=== PATIENT | female | born 1995 | race Caucasian/White ===

== ENCOUNTER 2016-10-05 20:10 | Emergency (ER) | payer OTHER ==
[~2016-10-05 20:10] MED LIST: METH40TA PO; PRENTAB16 PO; TYLE500T78 PO; ZOFR20TA PO
[2016-10-05] MEDS ORDERED: METOCLOPRAMIDE INJ 10MG/2ML VIAL (J2765) As Ordered ONE (22:16)
[2016-10-05 22:41] LABS: BASO # 0.1 K/mm3 (0.0-0.2); BASO % 0.7 % (0.0-1.0); EOS % 0.1 % (0.0-3.0); LARGE UNSTAINED CELL # 0.1 K/mm3 (0.0-0.4); LARGE UNSTAINED CELL % 0.6 % (0.0-4.0); LYMPH # 1.5 K/mm3 (1.5-6.5); LYMPH % 8.5 % (24.0-44.0); MEAN CORPUSCULAR HEMOGLOBIN 28.5 pg (27.0-33.0); MEAN CORPUSCULAR HGB CONC 33.2 g/dl (32.0-36.5); MEAN CORPUSCULAR VOLUME 85.8 fl (80.0-96.0); MONO # 0.4 K/mm3 (0.0-0.8); MONO % 2.6 % (0.0-5.0); NEUTROPHILS # 14.3 K/mm3 (1.8-7.7); NEUTROPHILS % 87.6 % (36.0-66.0); PLATELET COUNT, AUTOMATED 224 k/mm3 (150-450); RED CELL DISTRIBUTION WIDTH 12.9 % (11.5-14.5); WHITE BLOOD COUNT 16.4 K/mm3 (4.0-10.0)
[2016-10-05 23:00] LABS: ALBUMIN 3.9 GM/DL (3.2-5.2); ALBUMIN/GLOBULIN RATIO 1.03 (1.00-1.93); ALKALINE PHOSPHATASE 46 U/L (45-117); ALT/SGPT 15 U/L (12-78); ANION GAP 14 MEQ/L (8-16); AST/SGOT 10 U/L (15-37); BILIRUBIN,DIRECT 0.1 MG/DL (0.0-0.2); BILIRUBIN,TOTAL 0.4 MG/DL (0.2-1.0); BLOOD UREA NITROGEN 12 MG/DL (7-18); CALCIUM LEVEL 9.4 MG/DL (8.5-10.1); CARBON DIOXIDE LEVEL 24 MEQ/L (21-32); CHLORIDE LEVEL 102 MEQ/L (98-107); CREATININE FOR GFR 0.52 MG/DL (0.55-1.02); GLOMERULAR FILTRATION RATE > 60.0 (>60); GLUCOSE, FASTING 99 MG/DL (70-105); POTASSIUM SERUM 3.5 MEQ/L (3.5-5.1); SODIUM LEVEL 140 MEQ/L (136-145); TOTAL PROTEIN 7.7 GM/DL (6.4-8.2)
[2016-10-06] MEDS ORDERED: NITROFURANTOIN (MACROBID) 100 MG CAP As Ordered ONE (01:53)
--- NOTE | 2016-10-06 02:10 | EDDOCDS ---
Nurse's Notes [facility] Name: Melani Kidd Age: 21 yrs Sex: Female : 1995 Arrival Date: 10/05/2016 Time: 20:10 Bed I1 / M1 Private MD: NO PRIMARY PHYSICIAN, . Diagnosis: Vomiting of , unspecified;Urinary tract infection, site not specified Presentation: 10/05 20:24 Presenting complaint: Patient states: vomiting for 3 days abdominal discomfort no cz diarrhea pt is 11 weeks out of reglan and zofran. Adult Sepsis Screening: The patient does not have new or worsening altered mentation. Patient's respiratory rate is less than 22. Systolic blood pressure is greater than 100. Patient has a qSOFA score of 0- Negative Sepsis Screen. Suicide/Homicide risk assessment- the patient denies having any suicidal and/or homicidal ideations and does not present with any other emotional, behavioral or mental health complaints. Status: Patient is not a director of rehabilitative services or dependent. Transition of care: patient was not received from another setting of care. 20:24 Acuity: CAROLYNN Level 3 cz 20:24 Method Of Arrival: Walkin/Carried/Asstd cz 20:27 Presenting complaint:. cz Triage Assessment: 20:26 General: Appears uncomfortable. Pain: Location: abdomen Pain currently is 8 out of 10 cz on a pain scale. HIV screening NA for this visit Offered previously. 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 methadone 45 mg Oral TbSO 1 tab once daily for Opioid Dependence 2. 1 mg Oral tab 1 tab daily - PMHx: MRSA; Substance Abuse; - PSHx: Adenoidectomy; Tonsillectomy; Tubes in ears; - Social history: Smoking status: Patient states was never smoker of tobacco. No barriers to communication noted, The patient speaks fluent Swedish, Speaks appropriately for age. - Family history: Not pertinent. - : The pt / caregiver states he / she is on anticoagulants: Home medication list is obtained from the patient. 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 Screenin:35 Screening information is obtained from the patient. Fall risk: No risks identified. kc3 Assistance ADL's: requires no assistance with activities of daily living. Abuse/DV Screen: The patient / caregiver reports he/she is: not in a situation that causes fear, pain or injury. Nutritional screening: No deficits noted. home support is adequate. 10/06 02:08 Advance Directives: Further advance directive information is declined. sls1 Assessment: 10/05 20:43 General: Appears uncomfortable, Behavior is appropriate for age, cooperative. mb9 Cardiovascular: Chest pain is described as Pain is 5 out of 10 on a pain scale. quality is aching is located in anterior chest wall radiates Does not radiate. is aggravated by breathing, palpation. Respiratory: Airway is patent Respiratory effort is even, unlabored. 21:42 General: Appears uncomfortable, pt called into triage room ahead due to actively sls1 vomiting in waiting room. 22:34 General: Appears uncomfortable, Behavior is appropriate for age, cooperative. Pain: kc3 Location: right lower quadrant Pain currently is 7 out of 10 on a pain scale. Neurological: Level of Consciousness is awake, alert, obeys commands, Oriented to person, place, time. Respiratory: Respiratory effort is even, unlabored. GI: Abdomen is flat, Reports nausea. : Reports inability to void. Derm: Skin is pink, warm & dry. 22:46 GI: Bowel sounds present X 4 quads. Abd is soft Abd is tender to palpation. kc3 23:26 General: pt drank 60 ml of apple juice. pt denies vomiting . dsf 10/06 00:31 General: Appears in no apparent distress, Behavior is appropriate for age. dsf Neurological: Level of Consciousness is awake, alert. Cardiovascular: No deficits noted. Respiratory: No deficits noted. Derm: Skin is pink, warm & dry. 01:26 General: Appears uncomfortable, Pt reports continues to have nausea, but mostly with sls1 movement. Provider aware, no new orders given. Pt is unable to have additional medications at this time due to max dose.. Neurological: Level of Consciousness is awake, alert. Respiratory: No deficits noted. GI: Reports nausea. Derm: 02:08 General: provider aware of blood pressure, pt denies c/o dizziness or light headedness, sls1 discharge instructions reviewed with pt including medication use and follow up care, verbalizes understanding of all instructions. Pain: Denies pain. Neurological: Level of Consciousness is awake, alert, Denies dizziness. Respiratory: No deficits noted. Vital Signs: 10/05 20:12 BP 145 / 70; Pulse 116; Resp 16; Temp 98.8(O); Pulse Ox 97% ; Weight 58.97 kg; Height 5 cmb ft. 2 in. (157.48 cm); Pain 8/10; 10/06 00:29 BP 105 / 55; Pulse 86; Resp 16; Temp 99.2; Pulse Ox 96% ; Pain 0/10; ajs 01:54 Pulse 92; Resp 18; Temp 98.8; Pulse Ox 97% ; ajs 02:00 BP 102 / 55 LA Supine (auto/reg); ajs 10/05 20:12 Body Mass Index 23.78 (58.97 kg, 157.48 cm) cmb Vitals: 10/05 20:12 Log In Time: October 05, 2016 at 20:10. cmb 22:48 Heart Tones 171BPM. [facility] ED Course: 20:11 Patient visited by Malka Flynn. cmb 20:11 Patient moved to Waiting cmb 20:12 NO PRIMARY PHYSICIAN, . is Private Physician. cmb 20:13 Patient moved to Pre RCE cmb 20:25 Triage Initiated cz 20:38 Patient moved to PR2 / 26 sls1 20:57 Patient moved to TR3 mdr 21:11 Patient moved to Pre RCE sls1 21:42 Patient moved to Triage 1 sls1 21:55 Teagan Leonard FNP is [facility]. le 22:01 Patient visited by Teagan Leonard FNP. le 22:01 Patient visited by Teagan Leonard FNP. le 22:04 Patient moved to I1 / M1 sls1 22:09 Patient visited by Teagan Leonard FNP. le 22:35 Inserted saline lock: 20 gauge in right antecubital area and blood collected. The 3 patient tolerated the procedure well. Labs drawn. (by ED staff). Sent per order to lab. 22:35 Lipase Sent. kc3 22:36 Patient visited by Charity Green RN. kc3 22:36 Liver Profile Sent. kc3 22:36 BMP Sent. kc3 22:36 CBC with Diff Sent. kc3 22:43 [place] [place] Payment Agreement was scanned into [employer] and attached to record. ks16 22:47 Patient visited by Charity Green RN. kc3 22:47 The patient / caregiver is instructed regarding the plan of care and ED course. kc3 23:44 Patient visited by Melani Suaer. ajs 10/06 00:24 UA Sent. dsf 00:29 Patient visited by Melani Sauer. ajs 00:32 Patient visited by Cande Díaz RN. dsf 01:02 PHCP role handed off by Teagan Leonard FNP ck7 01:02 Julio Ellison RPA-C is PHCP. ck7 01:02 Josué Conway DO is Attending Physician. ck7 01:04 Patient visited by Julio Ellison RPA-C. ck7 01:28 Patient visited by Prisca Tidwell RN. sls1 02:08 Discontinued lock intact, bleeding controlled, pressure dressing applied, No sls1 redness/swelling at site. No procedures done that require assistance. Administered Medications: 10/05 22:36 Drug: NS 0.9% 2000 ml [sodium chloride 0.9 % intravenous solution] Route: IV; Rate: kc3 bolus; Site: right antecubital; 10/06 00:23 Follow up: IV Status: Completed infusion; IV Intake: 2000ml [facility] 10/05 22:36 Drug: Metoclopramide 20 mg [metoclopramide 5 mg/mL injection solution] Route: IV; Rate: kc3 80 mg/hr; Infused Over: 15 mins; Site: right antecubital; 23:01 Follow up: IV Status: Completed infusion; IV Intake: 10ml f 10/06 01:56 Drug: Nitrofurantoin 100 mg [nitrofurantoin macrocrystal 50 mg capsule (2 caps)] Route: sls1 PO; Intake: 10/05 23:01 IV: 10.00ml; Total: 10.00ml. dsf 10/06 00:23 IV: 2000.00ml; Total: 2010.00ml. dsf Order Results: Lab Order: UA; SPEC'M 10/06/16 00:24 Test: APPEARANCE, URINE; Value: HAZY; Range: CLEAR; Status: F Test: COLOR, URINE; Value: JOCELYNN; Range: YELLOW; Status: F Test: PH,URINE; Value: 5.0; Range: 5.0-9.0; Units: UNITS; Status: F Test: SPECIFIC GRAVITY URINE AUTO; Value: 1.034; Range: 1.002-1.035; Status: F Test: PROTEIN, URINE AUTO; Value: 2+; Range: NEGATIVE; Abnormal: Above high normal; Units: mg/dL; Status: F Test: GLUCOSE, URINE (UA) AUTO; Value: NEGATIVE; Range: NEGATIVE; Units: mg/dL; Status: F Test: KETONE, URINE AUTO; Value: 2+; Range: NEGATIVE; Abnormal: Above high normal; Units: mg/dL; Status: F Test: UROBILINOGEN, URINE AUTO; Value: 0.2; Range: 0.0-2.0; Units: mg/dL; Status: F Test: BILIRUBIN, URINE AUTO; Value: NEGATIVE; Range: NEGATIVE; Status: F Test: NITRITE, URINE AUTO; Value: NEGATIVE; Range: NEGATIVE; Status: F Test: LEUKOCYTE ESTERASE, URINE AUTO; Value: 1+; Range: NEGATIVE; Abnormal: Above high normal; Status: F Test: BLOOD, URINE BLOOD; Value: NEGATIVE; Range: NEGATIVE; Status: F Test: WBC, URINE AUTO; Value: 7; Range: 0-3; Abnormal: Above high normal; Units: /HPF; Status: F Test: RBC, URINE AUTO; Value: 6; Range: 0-3; Abnormal: Above high normal; Units: /HPF; Status: F Test: BACTERIA, URINE AUTO; Value: 1+; Range: NEGATIVE; Abnormal: Above high normal; Status: F Test: SQUAMOUS EPITHELIAL CELL UR AU; Value: 1; Range: 0-6; Units: /HPF; Status: F Test: MUCUS, URINE; Value: LARGE; Range: NEGATIVE; Status: F Test: HYALINE CAST, URINE AUTO; Value: 0; Range: 0-1; Units: /LPF; Status: F Lab Order: CBC with Diff; SPEC'M 10/05/16 22:25 Test: WHITE BLOOD COUNT; Value: 16.4; Range: 4.0-10.0; Abnormal: Above high normal; Units: K/mm3; Status: F Test: RED BLOOD COUNT; Value: 4.88; Range: 4.00-5.40; Units: M/mm3; Status: F Test: HEMOGLOBIN; Value: 13.9; Range: 12.0-16.0; Units: g/dl; Status: F Test: HEMATOCRIT; Value: 41.9; Range: 36.0-47.0; Units: %; Status: F Test: MEAN CORPUSCULAR VOLUME; Value: 85.8; Range: 80.0-96.0; Units: fl; Status: F Test: MEAN CORPUSCULAR HEMOGLOBIN; Value: 28.5; Range: 27.0-33.0; Units: pg; Status: F Test: MEAN CORPUSCULAR HGB CONC; Value: 33.2; Range: 32.0-36.5; Units: g/dl; Status: F Test: RED CELL DISTRIBUTION WIDTH; Value: 12.9; Range: 11.5-14.5; Units: %; Status: F Test: PLATELET COUNT, AUTOMATED; Value: 224; Range: 150-450; Units: k/mm3; Status: F Test: NEUTROPHILS %; Value: 87.6; Range: 36.0-66.0; Abnormal: Above high normal; Units: %; Status: F Test: LYMPH %; Value: 8.5; Range: 24.0-44.0; Abnormal: Below low normal; Units: %; Status: F Test: MONO %; Value: 2.6; Range: 0.0-5.0; Units: %; Status: F Test: EOS %; Value: 0.1; Range: 0.0-3.0; Units: %; Status: F Test: BASO %; Value: 0.7; Range: 0.0-1.0; Units: %; Status: F Test: LARGE UNSTAINED CELL %; Value: 0.6; Range: 0.0-4.0; Units: %; Status: F Test: NEUTROPHILS #; Value: 14.3; Range: 1.8-7.7; Abnormal: Above high normal; Units: K/mm3; Status: F Test: LYMPH #; Value: 1.5; Range: 1.5-6.5; Units: K/mm3; Status: F Test: MONO #; Value: 0.4; Range: 0.0-0.8; Units: K/mm3; Status: F Test: EOS #; Value: 0.0; Range: 0.0-0.50; Units: K/mm3; Status: F Test: BASO #; Value: 0.1; Range: 0.0-0.2; Units: K/mm3; Status: F Test: LARGE UNSTAINED CELL #; Value: 0.1; Range: 0.0-0.4; Units: K/mm3; Status: F Lab Order: BMP; SPEC'M 10/05/16 22:25 Test: GLUCOSE, FASTING; Value: 99; Range: 70-105; Units: MG/DL; Status: F Test: BLOOD UREA NITROGEN; Value: 12; Range: 7-18; Units: MG/DL; Status: F Test: CREATININE FOR GFR; Value: 0.52; Range: 0.55-1.02; Abnormal: Below low normal; Units: MG/DL; Status: F Test: GLOMERULAR FILTRATION RATE; Value: > 60.0; Range: >60; Status: F Test: SODIUM LEVEL; Value: 140; Range: 136-145; Units: MEQ/L; Status: F Test: POTASSIUM SERUM; Value: 3.5; Range: 3.5-5.1; Units: MEQ/L; Status: F Test: CHLORIDE LEVEL; Value: 102; Range: 98-107; Units: MEQ/L; Status: F Test: CARBON DIOXIDE LEVEL; Value: 24; Range: 21-32; Units: MEQ/L; Status: F Test: ANION GAP; Value: 14; Range: 8-16; Units: MEQ/L; Status: F Test: CALCIUM LEVEL; Value: 9.4; Range: 8.5-10.1; Units: MG/DL; Status: F Test Note: ; Units are mL/min/1.73 m2 Chronic Kidney Disease Staging per NKF: Stage I & II GFR >=60 Normal to Mildly Decreased Stage III GFR 30-59 Moderately Decreased Stage IV GFR 15-29 Severely Decreased Stage V GFR <15 Very Little GFR Left ESRD GFR <15 on EDGE PLUGGER Lab Order: Liver Profile; SPEC'M 10/05/16 22:25 Test: AST/SGOT; Value: 10; Range: 15-37; Abnormal: Below low normal; Units: U/L; Status: F Test: ALT/SGPT; Value: 15; Range: 12-78; Units: U/L; Status: F Test: ALKALINE PHOSPHATASE; Value: 46; Range: 45-117; Units: U/L; Status: F Test: BILIRUBIN,TOTAL; Value: 0.4; Range: 0.2-1.0; Units: MG/DL; Status: F Test: BILIRUBIN,DIRECT; Value: 0.1; Range: 0.0-0.2; Units: MG/DL; Status: F Test: TOTAL PROTEIN; Value: 7.7; Range: 6.4-8.2; Units: GM/DL; Status: F Test: ALBUMIN; Value: 3.9; Range: 3.2-5.2; Units: GM/DL; Status: F Test: ALBUMIN/GLOBULIN RATIO; Value: 1.03; Range: 1.00-1.93; Status: F Lab Order: Lipase; SPEC'M 10/05/16 22:25 Test: LIPASE; Value: 87; Range: 73-393; Units: U/L; Status: F Outcome: 01:51 Discharge ordered by Provider. ck7 02:08 Discharge Assessment: Patient awake, alert and oriented x 3. No cognitive and/or sls1 functional deficits noted. Patient verbalized understanding of disposition instructions. patient administered narcotics - no. The following High Risk Discharge criteria are identified: None. Discharged to home ambulatory. Condition: stable. Discharge instructions given to patient, Instructed on discharge instructions, follow up and referral plans. medication usage, Demonstrated understanding of instructions, medications, Pt was receptive of discharge instructions/ teaching. Prescriptions given X 1. Ultrasound Study completed. Property :Personal belongings accompany Pt. 02:10 Patient left the ED. sls1 Signatures: Jacobo Garcia RN RN cz Teagan Leonard FNP FNP le Fuller, DesireeRN RN Melani Worthington Shannon RN RN sls1 Malka Flynn Christopher, RPA-C RPA-Cck7 Telly Garza,RN RN mb9 Deny Mosley, RESEARCH STATISTICIAN RESEARCH STATISTICIAN Charity Chung,ISAEL RN kc3 Roula Ochoa, Reg Reg ks16 Corrections: (The following items were deleted from the chart) 10/05 20:27 20:24 Presenting complaint: Patient states: vomiting for 3 days abdominal discomfort no cz diarrhea cz 20:27 20:24 Adult Sepsis Screening: The patient does not have new or worsening altered cz mentation. Patient's respiratory rate is less than 22. Systolic blood pressure is greater than 100. Patient has a qSOFA score of 0- Negative Sepsis Screen. cz MTDD
--- NOTE | 2016-10-06 02:10 | EDDOCDS ---
Physician Documentation [facility] Name: Melani Kidd Age: 21 yrs Sex: Female : 1995 Arrival Date: 10/05/2016 Time: 20:10 Bed I1 / M1 Private MD: NO PRIMARY PHYSICIAN, . Disposition: 10/06/16 01:51 Discharged to Home/Self Care. Impression: Vomiting of , unspecified, Urinary tract infection, site not specified. - Condition is Stable. - Discharge Instructions: Hyperemesis Gravidarum, Urinary Tract Infection. - Prescriptions for Reglan 10 mg Oral Tablet - take 1 tablet by ORAL route every 6 hours take 30 minutes before meals and at bedtime; 20 tablet. Macrobid 100 mg Oral Capsule - take 100 milligram by ORAL route every 12 hours for 10 days; 20 capsule. - Medication Reconciliation, Local Pharmacy Hours form. - Follow up: Private Physician; When: 1 - 2 days; Reason: Recheck today's complaints, Continuance of care. - Problem is new. - Symptoms have improved. Historical: - Allergies: Latex (Hives); - Home Meds: 1. methadone 45 mg Oral TbSO 1 tab once daily for Opioid Dependence 2. 1 mg Oral tab 1 tab daily - PMHx: MRSA; Substance Abuse; - PSHx: Adenoidectomy; Tonsillectomy; Tubes in ears; - Social history: Smoking status: Patient states was never smoker of tobacco. No barriers to communication noted, The patient speaks fluent Icelandic, Speaks appropriately for age. - Family history: Not pertinent. - : The pt / caregiver states he / she is on anticoagulants: Home medication list is obtained from the patient. 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 2 in. (157.48 cm); Pain 8/10; 10/06 00:29 BP 105 / 55; Pulse 86; Resp 16; Temp 99.2; Pulse Ox 96% ; Pain 0/10; ajs 01:54 Pulse 92; Resp 18; Temp 98.8; Pulse Ox 97% ; ajs 02:00 BP 102 / 55 LA Supine (auto/reg); ajs 10/05 20:12 Body Mass Index 23.78 (58.97 kg, 157.48 cm) cmb MDM: 10/05 20:42 ECG WITH READING ER PHYS+CARDIAG ordered. EDMS 20:42 ECG WITH READING ER PHYS+CARDIAG ordered. EDMS 22:07 IV Saline Lock ordered. le 22:07 NS 0.9% 2000 ml IV at bolus once ordered. le 22:07 Heart Tones ordered. le 22:07 Metoclopramide 20 mg IV at 80 mg/hr once over 15 mins ordered. le 22:08 UA Ordered. EDMS 22:08 CBC with Diff Ordered. EDMS 22:08 BMP Ordered. EDMS 22:08 Liver Profile Ordered. EDMS 22:08 Lipase Ordered. EDMS 22:43 Financial registration complete. ks 22:43 [facility] Payment Agreement was scanned into [employer] and attached to record. ks 22:48 CBC with Diff Reviewed. le 23:06 BMP Reviewed. le 23:06 Liver Profile Reviewed. le 23:06 Lipase Reviewed. le 23:07 Fluid Challenge ordered. le 10/06 01:46 UA Reviewed. ck7 01:51 Nitrofurantoin 100 mg PO once ordered. ck7 Administered Medications: 10/05 22:36 Drug: NS 0.9% 2000 ml [sodium chloride 0.9 % intravenous solution] Route: IV; Rate: kc3 bolus; Site: right antecubital; 10/06 00:23 Follow up: IV Status: Completed infusion; IV Intake: 2000ml [facility] 10/05 22:36 Drug: Metoclopramide 20 mg [metoclopramide 5 mg/mL injection solution] Route: IV; Rate: kc3 80 mg/hr; Infused Over: 15 mins; Site: right antecubital; 23:01 Follow up: IV Status: Completed infusion; IV Intake: 10ml f 10/06 01:56 Drug: Nitrofurantoin 100 mg [nitrofurantoin macrocrystal 50 mg capsule (2 caps)] Route: sls1 PO; Signatures: Dispatcher [employer] EDMS Jacobo Garcia, Teagan Landry RN, FNP Prisca Pérez RN RN sls1 Julio Ellison, RPA-C RPA-Cck7 Charity Green,RN RN kc3 Roula Ochoa, Reg Reg ks16 Cande Díaz RNf The chart was reviewed and I authenticate all verbal orders and agree with the evaluation and treatment provided.Attachments: 10/05 22:43 [facility] Payment Agreement ks16 MTDD
--- NOTE | 2016-10-06 08:06 | ECGEPIP ---
Stationary ECG Study [facility] - ED Test Date: 2016-10-05 Pat Name: MARIAELENA LEON Department: Room: - Gender: F [employer] Specialist: : 1995 Requested By: CHERYL Marino Order Number: [id number] Reading MD: Abena Sow Measurements Intervals Mckean Rate: 71 P: 64 WI: 117 QRS: 85 QRSD: 83 T: 9 QT: 386 QTc: 421 Interpretive Statements SINUS RHYTHM WITH SHORT WI INTERVAL MODERATE ST DEPRESSION SIMILAR 09/02/16 Electronically Signed On 10-06-2016 8:05:48 EST by Abena Sow
--- NOTE | 2016-10-08 03:10 | EDDOCDS ---
Physician Documentation [facility] Name: Melani Kidd Age: 21 yrs Sex: Female : 1995 Arrival Date: 10/05/2016 Time: 20:10 Bed I1 / M1 Private MD: NO PRIMARY PHYSICIAN, . Disposition: 10/06/16 01:51 Discharged to Home/Self Care. Impression: Vomiting of , unspecified, Urinary tract infection, site not specified. - Condition is Stable. - Discharge Instructions: Hyperemesis Gravidarum, Urinary Tract Infection. - Prescriptions for Reglan 10 mg Oral Tablet - take 1 tablet by ORAL route every 6 hours take 30 minutes before meals and at bedtime; 20 tablet. Macrobid 100 mg Oral Capsule - take 100 milligram by ORAL route every 12 hours for 10 days; 20 capsule. - Medication Reconciliation, Local Pharmacy Hours form. - Follow up: Private Physician; When: 1 - 2 days; Reason: Recheck today's complaints, Continuance of care. - Problem is new. - Symptoms have improved. Historical: - Allergies: Latex (Hives); - Home Meds: 1. methadone 45 mg Oral TbSO 1 tab once daily for Opioid Dependence 2. 1 mg Oral tab 1 tab daily - PMHx: MRSA; Substance Abuse; - PSHx: Adenoidectomy; Tonsillectomy; Tubes in ears; - Social history: Smoking status: Patient states was never smoker of tobacco. No barriers to communication noted, The patient speaks fluent Serbian, Speaks appropriately for age. - Family history: Not pertinent. - : The pt / caregiver states he / she is on anticoagulants: Home medication list is obtained from the patient. 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 2 in. (157.48 cm); Pain 8/10; 10/06 00:29 BP 105 / 55; Pulse 86; Resp 16; Temp 99.2; Pulse Ox 96% ; Pain 0/10; ajs 01:54 Pulse 92; Resp 18; Temp 98.8; Pulse Ox 97% ; ajs 02:00 BP 102 / 55 LA Supine (auto/reg); ajs 10/05 20:12 Body Mass Index 23.78 (58.97 kg, 157.48 cm) cmb MDM: 10/05 20:42 ECG WITH READING ER PHYS+CARDIAG ordered. EDMS 20:42 ECG WITH READING ER PHYS+CARDIAG ordered. EDMS 22:07 IV Saline Lock ordered. le 22:07 NS 0.9% 2000 ml IV at bolus once ordered. le 22:07 Heart Tones ordered. le 22:07 Metoclopramide 20 mg IV at 80 mg/hr once over 15 mins ordered. le 22:08 UA Ordered. EDMS 22:08 CBC with Diff Ordered. EDMS 22:08 BMP Ordered. EDMS 22:08 Liver Profile Ordered. EDMS 22:08 Lipase Ordered. EDMS 22:43 Financial registration complete. ks16 22:43 COUNTS INCLUDE 234 BEDS AT THE [facility] Payment Agreement was scanned into [employer] and attached to record. ks16 22:48 CBC with Diff Reviewed. le 23:06 BMP Reviewed. le 23:06 Liver Profile Reviewed. le 23:06 Lipase Reviewed. le 23:07 Fluid Challenge ordered. le 10/06 01:46 UA Reviewed. ck7 01:51 Nitrofurantoin 100 mg PO once ordered. ck7 12:01 T-Sheet-- Draft Copy was scanned into [employer] and attached to record. gb 12:02 ECG/EKG was scanned into [employer] and attached to record. gb Administered Medications: 10/05 22:36 Drug: NS 0.9% 2000 ml [sodium chloride 0.9 % intravenous solution] Route: IV; Rate: kc3 bolus; Site: right antecubital; 10/06 00:23 Follow up: IV Status: Completed infusion; IV Intake: 2000ml f 10/05 22:36 Drug: Metoclopramide 20 mg [metoclopramide 5 mg/mL injection solution] Route: IV; Rate: kc3 80 mg/hr; Infused Over: 15 mins; Site: right antecubital; 23:01 Follow up: IV Status: Completed infusion; IV Intake: 10ml dsf 10/06 01:56 Drug: Nitrofurantoin 100 mg [nitrofurantoin macrocrystal 50 mg capsule (2 caps)] Route: sls1 PO; Signatures: Dispatcher MedHoStupil EDJacobo Capps, RN RN cz Rebecca Dillon, Reg Reg gb Teagan Leonard, PIECE HAND PIECE HAND Prisca Meadows RN RN sls1 Julio Ellison, RPA-C RPA-Cck7 Charity Green RN RN kc3 Roula Ochoa, Reg Reg ks16 Cande Díaz RNf The chart was reviewed and I authenticate all verbal orders and agree with the evaluation and treatment provided.Attachments: 10/05 22:43 [facility] [place] Payment Agreement [email or web address] 10/06 12:01 T-Sheet-- Draft Copy gb 12:02 ECG/EKG gb Chart Complete MTDD
--- NOTE | 2016-10-08 03:10 | EDDOCDS ---
Nurse's Notes [facility] Name: Mariaelena Leon Age: 21 yrs Sex: Female : 1995 Arrival Date: 10/05/2016 Time: 20:10 Bed I1 / M1 Private MD: NO PRIMARY PHYSICIAN, . Diagnosis: Vomiting of , unspecified;Urinary tract infection, site not specified Presentation: 10/05 20:24 Presenting complaint: Patient states: vomiting for 3 days abdominal discomfort no cz diarrhea pt is 11 weeks out of reglan and zofran. Adult Sepsis Screening: The patient does not have new or worsening altered mentation. Patient's respiratory rate is less than 22. Systolic blood pressure is greater than 100. Patient has a qSOFA score of 0- Negative Sepsis Screen. Suicide/Homicide risk assessment- the patient denies having any suicidal and/or homicidal ideations and does not present with any other emotional, behavioral or mental health complaints. Status: Patient is not a account service representative or dependent. Transition of care: patient was not received from another setting of care. 20:24 Acuity: CAROLYNN Level 3 cz 20:24 Method Of Arrival: Walkin/Carried/Asstd cz 20:27 Presenting complaint:. cz Triage Assessment: 20:26 General: Appears uncomfortable. Pain: Location: abdomen Pain currently is 8 out of 10 cz on a pain scale. HIV screening NA for this visit Offered previously. 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 methadone 45 mg Oral TbSO 1 tab once daily for Opioid Dependence 2. 1 mg Oral tab 1 tab daily - PMHx: MRSA; Substance Abuse; - PSHx: Adenoidectomy; Tonsillectomy; Tubes in ears; - Social history: Smoking status: Patient states was never smoker of tobacco. No barriers to communication noted, The patient speaks fluent Japanese, Speaks appropriately for age. - Family history: Not pertinent. - : The pt / caregiver states he / she is on anticoagulants: Home medication list is obtained from the patient. 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 Screenin:35 Screening information is obtained from the patient. Fall risk: No risks identified. kc3 Assistance ADL's: requires no assistance with activities of daily living. Abuse/DV Screen: The patient / caregiver reports he/she is: not in a situation that causes fear, pain or injury. Nutritional screening: No deficits noted. home support is adequate. 10/06 02:08 Advance Directives: Further advance directive information is declined. sls1 Assessment: 10/05 20:43 General: Appears uncomfortable, Behavior is appropriate for age, cooperative. mb9 Cardiovascular: Chest pain is described as Pain is 5 out of 10 on a pain scale. quality is aching is located in anterior chest wall radiates Does not radiate. is aggravated by breathing, palpation. Respiratory: Airway is patent Respiratory effort is even, unlabored. 21:42 General: Appears uncomfortable, pt called into triage room ahead due to actively sls1 vomiting in waiting room. 22:34 General: Appears uncomfortable, Behavior is appropriate for age, cooperative. Pain: kc3 Location: right lower quadrant Pain currently is 7 out of 10 on a pain scale. Neurological: Level of Consciousness is awake, alert, obeys commands, Oriented to person, place, time. Respiratory: Respiratory effort is even, unlabored. GI: Abdomen is flat, Reports nausea. : Reports inability to void. Derm: Skin is pink, warm & dry. 22:46 GI: Bowel sounds present X 4 quads. Abd is soft Abd is tender to palpation. kc3 23:26 General: pt drank 60 ml of apple juice. pt denies vomiting . dsf 10/06 00:31 General: Appears in no apparent distress, Behavior is appropriate for age. dsf Neurological: Level of Consciousness is awake, alert. Cardiovascular: No deficits noted. Respiratory: No deficits noted. Derm: Skin is pink, warm & dry. 01:26 General: Appears uncomfortable, Pt reports continues to have nausea, but mostly with sls1 movement. Provider aware, no new orders given. Pt is unable to have additional medications at this time due to max dose.. Neurological: Level of Consciousness is awake, alert. Respiratory: No deficits noted. GI: Reports nausea. Derm: 02:08 General: provider aware of blood pressure, pt denies c/o dizziness or light headedness, sls1 discharge instructions reviewed with pt including medication use and follow up care, verbalizes understanding of all instructions. Pain: Denies pain. Neurological: Level of Consciousness is awake, alert, Denies dizziness. Respiratory: No deficits noted. Vital Signs: 10/05 20:12 BP 145 / 70; Pulse 116; Resp 16; Temp 98.8(O); Pulse Ox 97% ; Weight 58.97 kg; Height 5 cmb ft. 2 in. (157.48 cm); Pain 8/10; 10/06 00:29 BP 105 / 55; Pulse 86; Resp 16; Temp 99.2; Pulse Ox 96% ; Pain 0/10; ajs 01:54 Pulse 92; Resp 18; Temp 98.8; Pulse Ox 97% ; ajs 02:00 BP 102 / 55 LA Supine (auto/reg); ajs 10/05 20:12 Body Mass Index 23.78 (58.97 kg, 157.48 cm) cmb Vitals: 10/05 20:12 Log In Time: October 05, 2016 at 20:10. cmb 22:48 Heart Tones 171BPM. [facility] ED Course: 20:11 Patient visited by Malka Flynn. cmb 20:11 Patient moved to Waiting cmb 20:12 NO PRIMARY PHYSICIAN, . is Private Physician. cmb 20:13 Patient moved to Pre RCE cmb 20:25 Triage Initiated cz 20:38 Patient moved to PR2 / 26 sls1 20:57 Patient moved to TR3 mdr 21:11 Patient moved to Pre RCE sls1 21:42 Patient moved to Triage 1 sls1 21:55 Teagan Leonard FNP is [facility]. le 22:01 Patient visited by Teagan Leonard FNP. le 22:01 Patient visited by Teagan Leonard FNP. le 22:04 Patient moved to I1 / M1 sls1 22:09 Patient visited by Teagan Leonard FNP. le 22:35 Inserted saline lock: 20 gauge in right antecubital area and blood collected. The 3 patient tolerated the procedure well. Labs drawn. (by ED staff). Sent per order to lab. 22:35 Lipase Sent. kc3 22:36 Patient visited by Charity Green RN. kc3 22:36 Liver Profile Sent. kc3 22:36 BMP Sent. kc3 22:36 CBC with Diff Sent. kc3 22:43 [facility] [place] Payment Agreement was scanned into [employer] and attached to record. ks16 22:47 Patient visited by Charity Green RN. kc3 22:47 The patient / caregiver is instructed regarding the plan of care and ED course. kc3 23:44 Patient visited by Mariaelena Sauer. ajs 10/06 00:24 UA Sent. dsf 00:29 Patient visited by Mariaelena Sauer. ajs 00:32 Patient visited by Cande Díaz RN. dsf 01:02 PHCP role handed off by Teagan Leonard FNP ck7 01:02 Julio Ellison RPA-C is PHCP. ck7 01:02 Cheryl Conway DO is Attending Physician. ck7 01:04 Patient visited by Julio Ellison RPA-C. ck7 01:28 Patient visited by Prisca Tidwell RN. sls1 02:08 Discontinued lock intact, bleeding controlled, pressure dressing applied, No sls1 redness/swelling at site. No procedures done that require assistance. 08:22 EKG-ADULT Returned. EDMS 12:01 T-Sheet-- Draft Copy was scanned into [employer] and attached to record. gb 12:02 ECG/EKG was scanned into [employer] and attached to record. gb Administered Medications: 10/05 22:36 Drug: NS 0.9% 2000 ml [sodium chloride 0.9 % intravenous solution] Route: IV; Rate: kc3 bolus; Site: right antecubital; 10/06 00:23 Follow up: IV Status: Completed infusion; IV Intake: 2000ml f 10/05 22:36 Drug: Metoclopramide 20 mg [metoclopramide 5 mg/mL injection solution] Route: IV; Rate: kc3 80 mg/hr; Infused Over: 15 mins; Site: right antecubital; 23:01 Follow up: IV Status: Completed infusion; IV Intake: 10ml dsf 10/06 01:56 Drug: Nitrofurantoin 100 mg [nitrofurantoin macrocrystal 50 mg capsule (2 caps)] Route: sls1 PO; Intake: 10/05 23:01 IV: 10.00ml; Total: 10.00ml. dsf 10/06 00:23 IV: 2000.00ml; Total: 2010.00ml. dsf Order Results: Lab Order: UA; SPEC'M 10/06/16 00:24 Test: APPEARANCE, URINE; Value: HAZY; Range: CLEAR; Status: F Test: COLOR, URINE; Value: JOCELYNN; Range: YELLOW; Status: F Test: PH,URINE; Value: 5.0; Range: 5.0-9.0; Units: UNITS; Status: F Test: SPECIFIC GRAVITY URINE AUTO; Value: 1.034; Range: 1.002-1.035; Status: F Test: PROTEIN, URINE AUTO; Value: 2+; Range: NEGATIVE; Abnormal: Above high normal; Units: mg/dL; Status: F Test: GLUCOSE, URINE (UA) AUTO; Value: NEGATIVE; Range: NEGATIVE; Units: mg/dL; Status: F Test: KETONE, URINE AUTO; Value: 2+; Range: NEGATIVE; Abnormal: Above high normal; Units: mg/dL; Status: F Test: UROBILINOGEN, URINE AUTO; Value: 0.2; Range: 0.0-2.0; Units: mg/dL; Status: F Test: BILIRUBIN, URINE AUTO; Value: NEGATIVE; Range: NEGATIVE; Status: F Test: NITRITE, URINE AUTO; Value: NEGATIVE; Range: NEGATIVE; Status: F Test: LEUKOCYTE ESTERASE, URINE AUTO; Value: 1+; Range: NEGATIVE; Abnormal: Above high normal; Status: F Test: BLOOD, URINE BLOOD; Value: NEGATIVE; Range: NEGATIVE; Status: F Test: WBC, URINE AUTO; Value: 7; Range: 0-3; Abnormal: Above high normal; Units: /HPF; Status: F Test: RBC, URINE AUTO; Value: 6; Range: 0-3; Abnormal: Above high normal; Units: /HPF; Status: F Test: BACTERIA, URINE AUTO; Value: 1+; Range: NEGATIVE; Abnormal: Above high normal; Status: F Test: SQUAMOUS EPITHELIAL CELL UR AU; Value: 1; Range: 0-6; Units: /HPF; Status: F Test: MUCUS, URINE; Value: LARGE; Range: NEGATIVE; Status: F Test: HYALINE CAST, URINE AUTO; Value: 0; Range: 0-1; Units: /LPF; Status: F Lab Order: CBC with Diff; SPEC'M 10/05/16 22:25 Test: WHITE BLOOD COUNT; Value: 16.4; Range: 4.0-10.0; Abnormal: Above high normal; Units: K/mm3; Status: F Test: RED BLOOD COUNT; Value: 4.88; Range: 4.00-5.40; Units: M/mm3; Status: F Test: HEMOGLOBIN; Value: 13.9; Range: 12.0-16.0; Units: g/dl; Status: F Test: HEMATOCRIT; Value: 41.9; Range: 36.0-47.0; Units: %; Status: F Test: MEAN CORPUSCULAR VOLUME; Value: 85.8; Range: 80.0-96.0; Units: fl; Status: F Test: MEAN CORPUSCULAR HEMOGLOBIN; Value: 28.5; Range: 27.0-33.0; Units: pg; Status: F Test: MEAN CORPUSCULAR HGB CONC; Value: 33.2; Range: 32.0-36.5; Units: g/dl; Status: F Test: RED CELL DISTRIBUTION WIDTH; Value: 12.9; Range: 11.5-14.5; Units: %; Status: F Test: PLATELET COUNT, AUTOMATED; Value: 224; Range: 150-450; Units: k/mm3; Status: F Test: NEUTROPHILS %; Value: 87.6; Range: 36.0-66.0; Abnormal: Above high normal; Units: %; Status: F Test: LYMPH %; Value: 8.5; Range: 24.0-44.0; Abnormal: Below low normal; Units: %; Status: F Test: MONO %; Value: 2.6; Range: 0.0-5.0; Units: %; Status: F Test: EOS %; Value: 0.1; Range: 0.0-3.0; Units: %; Status: F Test: BASO %; Value: 0.7; Range: 0.0-1.0; Units: %; Status: F Test: LARGE UNSTAINED CELL %; Value: 0.6; Range: 0.0-4.0; Units: %; Status: F Test: NEUTROPHILS #; Value: 14.3; Range: 1.8-7.7; Abnormal: Above high normal; Units: K/mm3; Status: F Test: LYMPH #; Value: 1.5; Range: 1.5-6.5; Units: K/mm3; Status: F Test: MONO #; Value: 0.4; Range: 0.0-0.8; Units: K/mm3; Status: F Test: EOS #; Value: 0.0; Range: 0.0-0.50; Units: K/mm3; Status: F Test: BASO #; Value: 0.1; Range: 0.0-0.2; Units: K/mm3; Status: F Test: LARGE UNSTAINED CELL #; Value: 0.1; Range: 0.0-0.4; Units: K/mm3; Status: F Lab Order: BMP; SPEC'M 10/05/16 22:25 Test: GLUCOSE, FASTING; Value: 99; Range: 70-105; Units: MG/DL; Status: F Test: BLOOD UREA NITROGEN; Value: 12; Range: 7-18; Units: MG/DL; Status: F Test: CREATININE FOR GFR; Value: 0.52; Range: 0.55-1.02; Abnormal: Below low normal; Units: MG/DL; Status: F Test: GLOMERULAR FILTRATION RATE; Value: > 60.0; Range: >60; Status: F Test: SODIUM LEVEL; Value: 140; Range: 136-145; Units: MEQ/L; Status: F Test: POTASSIUM SERUM; Value: 3.5; Range: 3.5-5.1; Units: MEQ/L; Status: F Test: CHLORIDE LEVEL; Value: 102; Range: 98-107; Units: MEQ/L; Status: F Test: CARBON DIOXIDE LEVEL; Value: 24; Range: 21-32; Units: MEQ/L; Status: F Test: ANION GAP; Value: 14; Range: 8-16; Units: MEQ/L; Status: F Test: CALCIUM LEVEL; Value: 9.4; Range: 8.5-10.1; Units: MG/DL; Status: F Test Note: ; Units are mL/min/1.73 m2 Chronic Kidney Disease Staging per NKF: Stage I & II GFR >=60 Normal to Mildly Decreased Stage III GFR 30-59 Moderately Decreased Stage IV GFR 15-29 Severely Decreased Stage V GFR <15 Very Little GFR Left ESRD GFR <15 on INJECTION MOLDER Lab Order: Liver Profile; SPEC'M 10/05/16 22:25 Test: AST/SGOT; Value: 10; Range: 15-37; Abnormal: Below low normal; Units: U/L; Status: F Test: ALT/SGPT; Value: 15; Range: 12-78; Units: U/L; Status: F Test: ALKALINE PHOSPHATASE; Value: 46; Range: 45-117; Units: U/L; Status: F Test: BILIRUBIN,TOTAL; Value: 0.4; Range: 0.2-1.0; Units: MG/DL; Status: F Test: BILIRUBIN,DIRECT; Value: 0.1; Range: 0.0-0.2; Units: MG/DL; Status: F Test: TOTAL PROTEIN; Value: 7.7; Range: 6.4-8.2; Units: GM/DL; Status: F Test: ALBUMIN; Value: 3.9; Range: 3.2-5.2; Units: GM/DL; Status: F Test: ALBUMIN/GLOBULIN RATIO; Value: 1.03; Range: 1.00-1.93; Status: F Lab Order: Lipase; SPEC'M 10/05/16 22:25 Test: LIPASE; Value: 87; Range: 73-393; Units: U/L; Status: F Radiology Order: EKG-ADULT Test: EKG-ADULT REASON FOR EXAMINATION: Chest Pain; Stationary ECG Study; [facility] - ED; ; Test Date: 2016-10-05; Pat Name: MARIAELENA LEON Department:; Room: -; Gender: F 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 ck7 02:08 Discharge Assessment: Patient awake, alert and oriented x 3. No cognitive and/or sls1 functional deficits noted. Patient verbalized understanding of disposition instructions. patient administered narcotics - no. The following High Risk Discharge criteria are identified: None. Discharged to home ambulatory. Condition: stable. Discharge instructions given to patient, Instructed on discharge instructions, follow up and referral plans. medication usage, Demonstrated understanding of instructions, medications, Pt was receptive of discharge instructions/ teaching. Prescriptions given X 1. Ultrasound Study completed. Property :Personal belongings accompany Pt. 02:10 Patient left the ED. sls1 Signatures: Dispatcher [employer] EDMS Jacobo Garcia, RN RN cz Rebecca Dillon, Reg Reg gb Teagan Leonard, SECURITY COORDINATOR SECURITY COORDINATOR Cande Au,RN RN dsMariaelena Becerra Shannon RN RN sls1 Malka Flynn cmJulio Melendrez, RPA-C RPA-Cck7 Telly Garza,RN RN mb9 Deny Mosley, MOLD SHEET CLEANER MOLD SHEET CLEANER Charity Chung RN RN kc3 Roula Ochoa, Reg Reg ks16 Corrections: (The following items were deleted from the chart) 10/05 20:27 20:24 Presenting complaint: Patient states: vomiting for 3 days abdominal discomfort no cz diarrhea cz 20:27 20:24 Adult Sepsis Screening: The patient does not have new or worsening altered cz mentation. Patient's respiratory rate is less than 22. Systolic blood pressure is greater than 100. Patient has a qSOFA score of 0- Negative Sepsis Screen. cz Chart Complete MTDD
--- NOTE | 2016-10-08 03:10 | EDDOCDS ---
Physician Documentation [facility] Name: Melani Kidd Age: 21 yrs Sex: Female : 1995 Arrival Date: 10/05/2016 Time: 20:10 Bed I1 / M1 Private MD: NO PRIMARY PHYSICIAN, . Disposition: 10/06/16 01:51 Discharged to Home/Self Care. Impression: Vomiting of , unspecified, Urinary tract infection, site not specified. - Condition is Stable. - Discharge Instructions: Hyperemesis Gravidarum, Urinary Tract Infection. - Prescriptions for Reglan 10 mg Oral Tablet - take 1 tablet by ORAL route every 6 hours take 30 minutes before meals and at bedtime; 20 tablet. Macrobid 100 mg Oral Capsule - take 100 milligram by ORAL route every 12 hours for 10 days; 20 capsule. - Medication Reconciliation, Local Pharmacy Hours form. - Follow up: Private Physician; When: 1 - 2 days; Reason: Recheck today's complaints, Continuance of care. - Problem is new. - Symptoms have improved. Historical: - Allergies: Latex (Hives); - Home Meds: 1. methadone 45 mg Oral TbSO 1 tab once daily for Opioid Dependence 2. 1 mg Oral tab 1 tab daily - PMHx: MRSA; Substance Abuse; - PSHx: Adenoidectomy; Tonsillectomy; Tubes in ears; - Social history: Smoking status: Patient states was never smoker of tobacco. No barriers to communication noted, The patient speaks fluent Maori, Speaks appropriately for age. - Family history: Not pertinent. - : The pt / caregiver states he / she is on anticoagulants: Home medication list is obtained from the patient. 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 PHLEBOTOMY PROGRAM COORDINATOR: 10/05 20:26 LMP 07/09/2016 cz Vital Signs: 20:12 BP 145 / 70; Pulse 116; Resp 16; Temp 98.8(O); Pulse Ox 97% ; Weight 58.97 kg / 130.01 cmb lbs; Height 5 ft. 2 in. (157.48 cm); Pain 8/10; 10/06 00:29 BP 105 / 55; Pulse 86; Resp 16; Temp 99.2; Pulse Ox 96% ; Pain 0/10; ajs 01:54 Pulse 92; Resp 18; Temp 98.8; Pulse Ox 97% ; ajs 02:00 BP 102 / 55 LA Supine (auto/reg); ajs 10/05 20:12 Body Mass Index 23.78 (58.97 kg, 157.48 cm) cmb MDM: 10/05 20:42 ECG WITH READING ER PHYS+CARDIAG ordered. EDMS 20:42 ECG WITH READING ER PHYS+CARDIAG ordered. EDMS 22:07 IV Saline Lock ordered. le 22:07 NS 0.9% 2000 ml IV at bolus once ordered. le 22:07 Heart Tones ordered. le 22:07 Metoclopramide 20 mg IV at 80 mg/hr once over 15 mins ordered. le 22:08 UA Ordered. EDMS 22:08 CBC with Diff Ordered. EDMS 22:08 BMP Ordered. EDMS 22:08 Liver Profile Ordered. EDMS 22:08 Lipase Ordered. EDMS 22:43 Financial registration complete. ks16 22:43 [facility] Payment Agreement was scanned into D[employer] and attached to record. ks16 22:48 CBC with Diff Reviewed. le 23:06 BMP Reviewed. le 23:06 Liver Profile Reviewed. le 23:06 Lipase Reviewed. le 23:07 Fluid Challenge ordered. le 10/06 01:46 UA Reviewed. ck7 01:51 Nitrofurantoin 100 mg PO once ordered. ck7 12:01 T-Sheet-- Draft Copy was scanned into Datalink and attached to record. gb 12:02 ECG/EKG was scanned into D[employer]ink and attached to record. gb Administered Medications: 10/05 22:36 Drug: NS 0.9% 2000 ml [sodium chloride 0.9 % intravenous solution] Route: IV; Rate: kc3 bolus; Site: right antecubital; 10/06 00:23 Follow up: IV Status: Completed infusion; IV Intake: 2000ml f 10/05 22:36 Drug: Metoclopramide 20 mg [metoclopramide 5 mg/mL injection solution] Route: IV; Rate: kc3 80 mg/hr; Infused Over: 15 mins; Site: right antecubital; 23:01 Follow up: IV Status: Completed infusion; IV Intake: 10ml dsf 10/06 01:56 Drug: Nitrofurantoin 100 mg [nitrofurantoin macrocrystal 50 mg capsule (2 caps)] Route: sls1 PO; Signatures: Dispatcher MedHoBCNX EDJacobo Capps, RN RN cz Rebecca Dillon, Reg Reg gb Teagan Leonard, CONTROL SYSTEMS DEVELOPER CONTROL SYSTEMS DEVELOPER Prisca Meadows RN RN sls1 Julio Ellison, RPA-C RPA-Cck7 Charity Green RN RN kc3 Roula Ochoa, Reg Reg ks16 Cande Díaz RNf The chart was reviewed and I authenticate all verbal orders and agree with the evaluation and treatment provided.Attachments: 10/05 22:43 [facility] Payment Agreement ks16 10/06 12:01 T-Sheet-- Draft Copy gb 12:02 ECG/EKG gb Chart Complete MTDD
== END 2016-10-06 02:10 | disposition home or self-care (01) ==
LOC: M ED 20:10
DX: O21.9 Vomiting of pregnancy, unspecified (principal); O23.41 Unspecified infection of urinary tract in pregnancy, first trimester; O99.320 Drug use complicating pregnancy, unspecified trimester; F19.10 Other psychoactive substance abuse, uncomplicated; Z86.14 Personal history of Methicillin resistant Staphylococcus aureus infection; Z87.891 Personal history of nicotine dependence; Z91.040 Latex allergy status; Z79.899 Other long term (current) drug therapy; Z3A.11 11 weeks gestation of pregnancy
CPT/HCPCS: 36415; 80048; 80076; 81001; 83690; 85025; 93005; 96361; 96365; 99284; J2765

== ENCOUNTER → 2017-04-04 | Outpatient (CLI) | payer OTHER ==
--- NOTE | 2017-04-04 13:38 | REP ---
OB ULTRASOUND: Real-time sonographic evaluation of the gravid uterus is performed utilizing transabdominal technique. There is a single living intrauterine gestation, estimated gestational age 36 weeks 6 days based on the first ultrasound with EDC 04/26/2017. Today's measurements indicate appropriate growth. Biometry and Growth: BPD 93 mm = 38 weeks 0 days, 65th percentile HC 332 mm = 37 weeks 6 days, 67th percentile AC 304 mm = 34 weeks 2 days, 12th percentile FL 69 mm = 35 weeks 4 days, 30th percentile HC/AC ratio 1.09 within normal range. Estimated weight 2665 grams, 29th percentile. Cervical length: heart rate: 120 beats per minute position: Vertex. Placenta: Posterior and grade 3 with no previa or abruptions. Amniotic fluid: Within normal limits, AARON 10.5 within normal range of 7.5 to 24.5. S/D ratio 2.28 within normal range. RI 0.56 slightly below the normal range of 0.59 to 0.75. anatomy today includes four chamber heart, ventricular outflow tracts, stomach, three-vessel cord, kidneys and bladder, which are grossly unremarkable. IMPRESSION: Appropriate growth with estimated weight 29th percentile for the estimated gestational age. Signed by Jay Gifford MD 04/04/2017 04:43 P
== END ==
LOC: M RAD 11:57
PROVIDERS: ATTEND Obstetrics & Gynecology
DX: Z36 Encounter for antenatal screening of mother (principal)

== ENCOUNTER 2018-06-17 02:44 | Emergency (ER) | payer OTHER | END 2018-06-17 05:38 | disposition home or self-care (01) | LOC: M ED 02:44 | DX: K08.89 Other specified disorders of teeth and supporting structures (principal); Z91.040 Latex allergy status; M54.5 Low back pain; Z79.899 Other long term (current) drug therapy | CPT/HCPCS: 64400 ==

== ENCOUNTER 2018-06-18 02:34 | Emergency (ER) | payer OTHER ==
[2018-06-18] MEDS: OXYCODONE/APAP 5MG/325MG(BULK FOR ED) 1 TABLET PO (04:11)
== END 2018-06-18 04:22 | disposition home or self-care (01) ==
LOC: M ED 02:34
DX: K01.1 Impacted teeth (principal); Z91.040 Latex allergy status; Z79.899 Other long term (current) drug therapy
CPT/HCPCS: 99282

== ENCOUNTER 2018-06-19 18:06 | Emergency (ER) | payer OTHER | END 2018-06-19 19:57 | disposition left against medical advice (07) | LOC: M ED 18:06 | DX: K13.79 Other lesions of oral mucosa (principal); Z53.21 Procedure and treatment not carried out due to patient leaving prior to being seen by health care provider ==

== ENCOUNTER 2018-09-26 10:26 | Emergency (ER) | payer OTHER ==
[~2018-09-26] VITALS: Ht 157.5 cm; Wt 73.6 kg
[~2018-09-26 10:26] MED LIST changes: +ACET500T15 PO; +IBUP40TA PO; +METH10CO PO; +METH10TA2 PO; -ZOFR20TA PO; +ZOFR4TAB16 PO
[2018-09-26] MEDS ORDERED: ONDANSETRON 4 MG ORAL DISINTEGRATING TAB (Q0162 PER 1MG) PO ONE ×4 (11:15→15:45)
[2018-09-26 11:32] LABS: BASO % 0.2 % (0.0-1.0); EOS % 0.1 % (0.0-3.0); HEMATOCRIT 42.2 % (36.0-47.0); HEMOGLOBIN 13.9 g/dl (12.0-15.5); LYMPH # 1.4 10^3/uL (1.5-6.5); LYMPH % 8.1 % (24.0-44.0); MEAN CORPUSCULAR HEMOGLOBIN 28.2 pg (27.0-33.0); MEAN CORPUSCULAR HGB CONC 32.9 g/dl (32.0-36.5); MEAN CORPUSCULAR VOLUME 85.6 fl (80.0-96.0); MONO # 0.5 10^3/uL (0.0-0.8); MONO % 3.2 % (0.0-5.0); NEUTROPHILS # 14.7 10^3/uL (1.8-7.7); NEUTROPHILS % 87.9 % (36.0-66.0); PLATELET COUNT, AUTOMATED 279 10^3/uL (150-450); RED BLOOD COUNT 4.93 10^6/uL (4.00-5.40); WHITE BLOOD COUNT 16.7 10^3/uL (4.0-10.0)
[2018-09-26 12:04] LABS: BLOOD UREA NITROGEN 10 MG/DL (7-18); CALCIUM LEVEL 9.4 MG/DL (8.5-10.1); CARBON DIOXIDE LEVEL 26 MEQ/L (21-32); CHLORIDE LEVEL 102 MEQ/L (98-107); CREATININE FOR GFR 0.67 MG/DL (0.55-1.30); GLOMERULAR FILTRATION RATE > 60.0 (>60); GLUCOSE, FASTING 103 MG/DL (70-100); HCG, SERUM QUALITATIVE NEGATIVE (NEGATIVE); POTASSIUM SERUM 4.2 MEQ/L (3.5-5.1); SODIUM LEVEL 137 MEQ/L (136-145)
[2018-09-26] MEDS ORDERED: METOCLOPRAMIDE INJ 10MG/2ML VIAL (J2765) IV ONE (14:00)
[2018-09-26] MEDS ORDERED: NS 1,000 ML IV ONE (14:00)
[2018-09-26 14:20] LABS: APPEARANCE, URINE MANUAL CLEAR (CLEAR); COLOR, URINE MANUAL YELLOW (YELLOW)
[2018-09-26 14:21] LABS: BILIRUBIN, URINE MANUAL NEGATIVE (NEGATIVE); BLOOD URINE MANUAL TRACE (NEGATIVE); GLUCOSE, URINE (UA) MANUAL NEGATIVE (NEGATIVE); KETONE, URINE MANUAL 3+ mg/dL (NEGATIVE); LEUKOCYTE ESTERASE, URINE MAN NEGATIVE (NEGATIVE); NITRITE, URINE MANUAL NEGATIVE (NEGATIVE); PROTEIN, URINE MANUAL TRACE mg/dL (NEGATIVE); UROBILINOGEN, URINE MANUAL NORMAL (NORMAL)
[2018-09-26 14:31] LABS: SQUAMOUS EPITHELIAL CELL URINE LARGE AMOUNT /hpf (SMALL AMT); WBC, URINE 0-1 /hpf (0-3)
[2018-09-26 14:32] LABS: BACTERIA, URINE MOD AMOUNT; HYALINE CAST, URINE NONE SEEN /lpf (0-1)
[2018-09-26] MEDS ORDERED: ZOFR4TAB14 PO (14:54)
[2018-09-26] MEDS ORDERED: diphenhydrAMINE INJ 50MG/ML VIAL (J1200) As Ordered ONE (15:06)
[2018-09-26 15:42] VITALS: BP 114/60
== END 2018-09-26 16:28 | disposition home or self-care (01) ==
LOC: M ED 10:26
DX: A08.4 Viral intestinal infection, unspecified (principal); E86.0 Dehydration; F19.10 Other psychoactive substance abuse, uncomplicated; Z91.040 Latex allergy status; Z79.899 Other long term (current) drug therapy
CPT/HCPCS: 80048; 81000; 84703; 85025; 96374; 99284; J2765; Q0162